=== PATIENT | male | born 1970 | race Caucasian/White ===

== ENCOUNTER → 2024-11-16 10:42 | Outpatient (REF) | payer SELFPAY | LOC: HWRAD 10:42 | PROVIDERS: ATTENDING PHYSICIAN Student in an Organized Health Care Education/Training Program; FAMILY PHYSICIAN Emergency Medicine | DX: E78.2 Mixed hyperlipidemia (principal); I10 Essential (primary) hypertension | CPT/HCPCS: 75571 ==